=== PATIENT | female | born 1960 | race Caucasian/White ===

== ENCOUNTER 2024-04-02 08:33 | Outpatient (AMB) | payer OTHER, SELFPAY ==
--- NOTE | 2024-04-02 09:21 | AM.OFFWIN_ITS ---
Intake Vital Signs 04/02/24 09:23 Height 5 ft 8 in Weight 184 lb BMI 28.0 BP 132/88 Blood Pressure Location Rt brachial Position Sitting Pulse 80 Pulse Source Pulse Oximeter Temp 98.1 F Temp Source Oral Pulse Oximetry (%) 98 Oxygen Delivery Method Room Air Intake Visit Reasons: possible UTI Intake Note: pt here c/o urinary urgency, pain while urinating, lower abdominal pain. Started Saturday Patient Tobacco Use Status: Never used Tobacco Allergies No Known Allergies Allergy (Verified 04/02/24 09:28) Do you need a note to return to daycare/school/sports/work: No HPI HPI Comments History of Present Illness Details Patient is a 63-year-old female complaining of 2 days of urinary urgency, pain while urinating and lower abdominal pain. She denies any fevers, blood in her urine or history of kidney stones. She also has a concern about a hernia because when she was getting up from a chair she felt a tear in her left lower abdomen. She states some healthcare friends told her this could be a hernia [facility] Social History Patient Tobacco Use Status: Never used Tobacco Review of Systems Const All systems reviewed & are unremarkable except as noted in HPI and below Physical Exam Vital Signs: Last Vital Signs Temp 98.1 F 04/02/24 09:23 Pulse 80 04/02/24 09:23 BP 132/88 04/02/24 09:23 Pulse Ox 98 04/02/24 09:23 Oxygen Delivery Method Room Air 04/02/24 09:23 BMI result Body Mass Index 28.0 Const General: cooperative, healthy appearing, comfortable, no acute distress and well developed Orientation/consciousness: patient oriented x3 Limitations: no limitations HEENT Head: Yes normal to inspection Eyes General: appearance normal, both eyes and all related structures Neck Neck: Yes normal visual inspection and Yes full ROM Resp Effort & Inspection: normal respiratory effort and able to speak in complete sentences GI Other: No hernia was palpable in the lower left quadrant Inspection: Yes normal to inspection and No visible herniation Palpation (GI): Soft to palpation, nontender and No Bladder palpation abnormal General: No Bladder palpation abnormal Skin General skin exam: no rashes or lesions noted Neuro General: patient oriented x3 Extrem General: Yes normal to inspection Results AMB Urinalysis, Automated UA Leukoctes 125 Valentine/uL Last Edit by Davion Meza CMA on 04/02/24 09:33 UA Nitrite Negative Last Edit by Davion Meza, MELANIA on 04/02/24 09:33 UA Urobilinogen 0.2 mg/dL Last Edit by Davion Meza, MELANIA on 04/02/24 09:33 UA Protein 0 mg/dL Last Edit by Davion Meza, MELANIA on 04/02/24 09:33 UA pH 6.0 Last Edit by Davion Meza, MELANIA on 04/02/24 09:33 UA Blood 0 Sandro/uL Last Edit by Davion Meza, MELANIA on 04/02/24 09:33 UA Specific [place] 1.010 Last Edit by Davion Meza, MELANIA on 04/02/24 09:33 UA Ketone Negative Last Edit by Davion Meza, MELANIA on 04/02/24 09:33 UA Bilirubin 0 mg/dL Last Edit by Davion Meza, MELANIA on 04/02/24 09:33 UA Glucose 0 mg/dL Last Edit by Davion Meza CMA on 04/02/24 09:33 Results Reviewed Results Reviewed: Laboratory Last Values Urine pH (Auto) 6.0 04/02/24 09:31 Specific [place] (Auto) 1.010 04/02/24 09:31 Urine Protein (Auto) 0 mg/dL 04/02/24 09:31 Glucose (UA)(Auto) 0 mg/dL 04/02/24 09:31 Urine Ketones (Auto) Negative 04/02/24 09:31 Urine Blood (Auto) 0 Sandro/uL 04/02/24 09:31 Urine Nitrite (Auto) Negative 04/02/24 09:31 Urine Bilirubin (Auto) 0 mg/dL 04/02/24 09:31 Urine Urobilinogen (Auto) 0.2 mg/dL 04/02/24 09:31 Leukocyte Esterase (Auto) 125 Valentine/uL 04/02/24 09:31 Assessment & Plan Assessment & Plan (1) UTI (urinary tract infection): Code(s): N39.0 - Urinary tract infection, site not specified Qualifiers: Hematuria presence: without hematuria Urinary tract infection type: acute cystitis Qualified Code(s): N30.00 - Acute cystitis without hematuria Plan: UA +, need to send Rx for UTI however no pharmacy info in chart, YUNIER FAJARDO to get pharmacy name Gave precautions on when to go to the emergency department. (2) Sprain of abdominal wall: Code(s): S39.011A - Strain of muscle, fascia and tendon of abdomen, initial encounter Qualifiers: Encounter type: initial encounter Qualified Code(s): S39.011A - Strain of muscle, fascia and tendon of abdomen, initial encounter Plan: No hernia palpable, her pain was nowhere near the groin area or the umbilicus or the ventral area, advised rest and Aleve. Plan see above Orders: Orders AMB Urinalysis Automated Today Z13.9 - Encounter for screening, unspecified Medications: New cefuroxime axetil 500 mg PO Q12H 10 tabs 0RF Coding Level of Care Code New Pt Level 3 (78094) Diagnoses Acute cystitis without hematuria N30.00 Hematuria presence: without hematuria Urinary tract infection type: acute cystitis Strain of abdominal wall, initial encounter S39.011A Encounter type: initial encounter
[2024-04-02 09:23] VITALS: BP 132/88; PULSE 80; TEMP 36.7; O2SAT 98; BMI 28.0
== END 2024-04-02 09:50 | disposition home or self-care (01) ==
PROVIDERS: Visit Provider Physician Assistant
DX: N30.00 Acute cystitis without hematuria (principal); S39.011A Strain of muscle, fascia and tendon of abdomen, initial encounter; Z13.9 Encounter for screening, unspecified
CPT/HCPCS: 81003; 99203

== ENCOUNTER 2024-07-07 08:35 | Outpatient (AMB) | payer OTHER, SELFPAY ==
--- NOTE | 2024-07-07 08:41 | AM.OFFWIN_ITS ---
Intake Vital Signs 07/07/24 08:42 Height 5 ft 8 in Weight 184 lb BMI 28.0 BP 128/84 Blood Pressure Location Rt brachial Position Sitting Pulse 78 Pulse Source Pulse Oximeter Temp 98.2 F Temp Source Oral Pulse Oximetry (%) 98 Intake Visit Reasons: EP-cough Intake Note: pt is here for cough for over 1 month Patient Tobacco Use Status: Never used Tobacco Allergies No Known Allergies Allergy (Verified 07/07/24 08:42) Do you need a note to return to daycare/school/sports/work: No HPI HPI Comments History of Present Illness Details 63 y/o female patient who presents to [facility] with c/o productive to dry cough for more than a month. Denies fevers, chills, nausea or vomiting. Denies any recent sick contact. [facility] Social History Patient Tobacco Use Status: Never used Tobacco Review of Systems Const All systems reviewed & are unremarkable except as noted in HPI and below Physical Exam Vital Signs: Last Vital Signs Temp 98.2 F 07/07/24 08:42 Pulse 78 07/07/24 08:42 BP 128/84 07/07/24 08:42 Pulse Ox 98 07/07/24 08:42 BMI result Body Mass Index 28.0 Const General: no acute distress Nutritional Appearance: overweight Orientation/consciousness: patient oriented x3 HEENT Head: Yes normocephalic Ears: external ears normal and TM abnormal with fluid behind the TM General nose exam: Normal external nose present Face and sinus: Yes sinuses nontender Mouth: moist mucous membranes Throat: Yes postnasal drainage Resp Effort & Inspection: normal respiratory effort, able to speak in complete sentences and Actively coughing Auscultation: clear to auscultation bilaterally, no crackles, no rales, no rhonchi and no wheezes Cardio Heart sounds: S1 normal heart sound present and S2 normal heart sound present Neuro General: patient oriented x3 Assessment & Plan Assessment & Plan (1) Cough: Code(s): R05.9 - Cough, unspecified Qualifiers: Cough type: subacute Qualified Code(s): R05.2 - Subacute cough Plan: Warm fluids with honey OTC cough remedies. RTC if not better. Medications: New benzonatate 100 mg PO TID 90 caps 0RF R05.2 - Subacute cough Coding Level of Care Code Est Pt Level 3 (65006) Diagnoses Subacute cough R05.2 Cough type: subacute Time Spent (min) 15
[2024-07-07 08:42] VITALS: BP 128/84; PULSE 78; TEMP 36.8; O2SAT 98; BMI 28.0
== END 2024-07-07 09:36 | disposition home or self-care (01) ==
PROVIDERS: Visit Provider Nurse Practitioner Family
DX: R05.2 Subacute cough (principal)

== ENCOUNTER 2025-07-21 08:56 | Outpatient (REF) | payer OTHER, SELFPAY ==
--- NOTE | ~2025-07-21 | XR_ITS ---
EXAMINATION: XR KNEE, LEFT CLINICAL INFORMATION: M25.562 - Pain in left knee COMPARISON: None available. TECHNIQUE: AP and lateral views of the left knee. FINDINGS: There is no joint effusion. There is mild narrowing of the medial joint space. The medial intercondylar tubercle is peaked. There are minute marginal osteophytes involving tibial plateau. No fracture is evident. XR/XR knee LT 2V IMPRESSION: Mild osteoarthritis. Electronically signed by: Eliel Worley MD 07/21/2025 09:48 AM NICO
--- OUTSIDE RECORDS SUMMARY | 2025-07-21 10:22 | XMS_ITS | Clinical Summary ---
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 09/29/2024 Active Encounters Date Type Department Care Team Description 07/05/2025 8:00 AM EDT Consult Plastic & Re[facility]ive [facility] - [place] [address] [facility] [address] [place] [address] Leidy Jin PA Changing skin lesion (Primary Dx); History of basal cell carcinoma; Family history of melanoma from Last 3 Months Social History Tobacco Use Types Packs/Day Years Used Date Smoking Tobacco: Former Cigarettes 30.9 S tarted: 1994 Smokeless Tobacco: Former Tobacco Cessation:Counseling Given: Not Answered Alcohol Use Standard Drinks/Week Comments Yes 0 (1 standard drink = 0.6 oz pur e alcohol) Comments Unknown Sex and Gender Information Value Date Recorded Sex Assigned at Not on file Legal Sex Female 2:49 PM EDT Gender Identity Not on file Sexual Orientation Not on file Obstetrics History Last Filed Vital Signs Vital Sign Reading Time Taken Comments Blood Pressure 156/91 07/05/2025 8:02 AM EDT Pulse 92 07/05/2025 8:02 AM EDT Temperature - - Respiratory Rate - - Oxygen Saturation - - Inhaled Oxygen Concentration - - Weight 81.7 kg (180 lb 3.2 oz) 07/05/2025 8:02 A M EDT Height 172.7 cm (5' 8 ) 07/05/2025 8:02 AM EDT Body Mass Index 27.4 07/05/2025 8:02 AM EDT Plan of Treatment Upcoming Encounters Date Type Department Care Team (Late st Contact Info) Description 07/22/2025 8:00 AM EST Office Visit Plastic & Reconstructive Surgery - [place] [address] [place] [phone] Leidy Jin PA [facility] [place] [address] Health Maintenance Due Date Last Done Comments Breast Cancer Screening 1960 Cervical Cancer Screening: Pap Smear 11/10/1980 Pneumococcal Vaccine: 50+ Years (1 of 1 - PCV) 11/10/2009 Zoster Vaccines (1 of 2) 11/10/2009 Depression Screening 09/09/2024 COVID-19 Vaccine ( season) 2025 07/04/2023, 06/20/2023, 07/12/2022, Additional history exists Cholesterol Screening (Lipid Panel) 06/24/2025 Falls Risk Assessment 06/24/2025 Hepatitis C Screening 06/24/2025 Osteoporosis Screening (Bone Density Screening) 06/24/2025 Social Influencers of Health Screening 06/24/2025 Hypertension/CHF/CAD Annual BMP Blood Test 07/05/2025 Colorectal Cancer Screening: FIT-DNA (Cologuard) 2027 11/10/2024, 11/10/2024 DTaP,Tdap,and Td Vaccines (4 - Td or Tdap) 09/19/2028 09/19/2018, 11/30/2015, 11/15/2005 RSV Immunization Adult Patients (1 - 1-dose 75+ series) 11/10/2034 Influenza Vaccine Completed 06/10/2025, , 06/20/2023, Additional history exists HIB Vaccines Aged Out No longer eligi ble based on patient's age to complete this topic HPV Vaccines Aged Out No longer eligi ble based on patient's age to complete this topic Hepatitis A Vaccines Aged Out No long er eligible based on patient's age to complete this topic Hepatitis B Vaccines Aged Out No long er eligible based on patient's age to complete this topic IPV Vaccines Aged Out No longer eligi ble based on patient's age to complete this topic MMR Vaccines Aged Out No longer eligi ble based on patient's age to complete this topic Meningococcal ACWY Vaccine Aged Out N o longer eligible based on patient's age to complete this topic Meningococcal B Vaccine Aged Out No l onger eligible based on patient's age to complete this topic RSV Immunization Patients Under 20 months Aged Out No longer eligible based on patient's age to complete this topic Varicella Vaccines Aged Out No longer eligible based on patient's age to complete this topic Insurance [facility] Care Teams Trim Setter Helper Relationship Specialty Start Date End Date Princess Ireland NP [address] [facility] [place] [address] PCP - General Nurse Practitioner 06/24/25
== END 2025-07-21 08:57 | disposition home or self-care (01) ==
LOC: HO.HMGCX 08:56
PROVIDERS: PCP Nurse Practitioner Family; Visit Provider Nurse Practitioner Family
DX: M25.562 Pain in left knee (principal)
CPT/HCPCS: 73560

== ENCOUNTER 2025-07-21 08:56 | Outpatient (AMB) | payer OTHER, SELFPAY ==
[2025-07-21 08:58] VITALS: BP 136/80; PULSE 100; O2SAT 98; BMI 26.3
--- NOTE | 2025-07-21 08:58 | AM.OFFWIN_ITS ---
Intake Vital Signs 07/21/25 08:58 Height 5 ft 8 in Weight 173 lb BMI 26.3 BP 136/80 Blood Pressure Location Lt brachial Position Sitting Pulse 100 Pulse Source Pulse Oximeter Pulse Oximetry (%) 98 Oxygen Delivery Method Room Air Intake Visit Reasons: EP Left knee pain from gym accident Intake Note: Patient presents c/o left knee pain due to an injury at the gym this morning. Patient reports hearing & feeling a pop & she is unable to apply pressure to the leg. Patient Tobacco Use Status: Never used Tobacco Allergies No Known Allergies Allergy (Verified 07/21/25 09:01) HPI EP Left knee pain from gym accident HPI Details This is a 64 year old female patient who presents to the [place] clinic today with report of left knee pain. She was at the gym this morning and was doing jumping jacks when she felt a pop in her left knee. She immediately felt pain, and she has been unable to bear weight on that leg. She denies any swelling or redness. Denies prior injury to area. She is using a pair of crutches she had at home. [facility] Social History Patient Tobacco Use Status: Never used Tobacco Review of Systems Const All systems reviewed & are unremarkable except as noted in HPI and below Physical Exam Vital Signs: Last Vital Signs Pulse 100 07/21/25 08:58 BP 136/80 07/21/25 08:58 Pulse Ox 98 07/21/25 08:58 Oxygen Delivery Method Room Air 07/21/25 08:58 BMI result Body Mass Index 26.3 Const General: cooperative Nutritional Appearance: average body habitus Limitations: crutches Resp Effort & Inspection: normal respiratory effort Skin General skin exam: no rashes or lesions noted Neuro General: moves all extremities, no focal motor deficits and deep tendon reflexes 2+ bilaterally Extrem Left lower extremity: normal to inspection, no joint enlargement and knee Details: tenderness (pain posteriorly), abnormal ROM Details: pain with active ROM Details: with extension and knee ligament exam normal Details: anterior drawer test normal and Robi's test normal Psych Appearance: grossly normal Mental Status: mental status grossly normal Speech and movement: Normal speech and movement present Assessment & Plan Assessment & Plan (1) Posterior left knee pain: Code(s): M25.562 - Pain in left knee Plan: On physical exam, there does not appear to be any ligamentous instability. XR appears normal aside from mild OA. She has pain with flexion posteriorly, and with any weight bearing. She can continue to use crutches as needed. I will prescribe meloxicam - we reviewed indications, use, possible side effects of this. She can also utilize Tylenol as needed. I applied Rosendo wrap today and provided patient with ice packs. She is going to contact PCP to inquire about orthopedics referral, which I encouraged should her symptoms not improve with conservative measures, as she may require advanced imaging to rule out ligament tear. All questions were answered and patient verbalizes understanding and agrees to plan. Orders: Orders XR knee LT 2V Today M25.562 - Pain in left knee Medications: New meloxicam 15 mg PO DAILY 7 tabs 0RF 7 days M25.562 - Pain in left knee Coding Level of Care Code Est Pt Level 4 (15161) Diagnoses Posterior left knee pain M25.562
== END 2025-07-21 09:58 | disposition home or self-care (01) ==
PROVIDERS: Visit Provider Nurse Practitioner Family
DX: M25.562 Pain in left knee (principal)

== ENCOUNTER → 2025-07-21 09:29 | Outpatient (BNV) | payer OTHER, SELFPAY | PROVIDERS: PCP Nurse Practitioner Family; Visit Provider Radiology Diagnostic Radiology | DX: M25.562 Pain in left knee (principal) | CPT/HCPCS: 73560 ==